=== PATIENT | female | born 1975 | race African-American/Black ===

== ENCOUNTER → 2017-08-28 14:35 | Outpatient (CLI) | payer OTHER ==
[~2017-08-28 14:35] MED LIST: ALDACTONE50 MG PO; BACTRIM 400-801 TAB PO; DOXYCYCLINE HY100 M2 PO; HYDROCODONE-APA1 TAB PO; LASIX40 MG PO; NORVASC10 MG PO; VITAMIN D250000 UNIT PO
[2017-09-12 18:09] VITALS: BMI 35.6
== END | disposition home or self-care (01) ==
LOC: D.MRI 14:35
DX: M79.604 Pain in right leg (principal)

== ENCOUNTER 2017-09-12 06:00 | Day surgery (SDC) | payer OTHER ==
[2017-09-11 17:07] LABS: BASOPHILS 0.9 % (0-2); EOSINOPHILS 1.6 % (0-7); HEMATOCRIT 39.4 % (36.0-48.0); IMMATURE GRANULOCYTES 0.3 % (0-5); LYMPHOCYTES 19.9 % (15-50); MCH 26.5 pg (26.0-34.0); MCV 80.4 fL (80.0-100.0); MEAN PLATELET VOLUME 8.9 fL (7.4-10.4); NEUTROPHILS 71.3 % (40-80); PLATELET COUNT 280 10x3/uL (130-400); RDW 14.8 % (11.5-14.5)
[2017-09-11 17:42] LABS: ALBUMIN 3.8 g/dL (3.4-5.0); ANION GAP 9.2 mmol/L (8-16); BILIRUBIN - TOTAL 0.93 mg/dL (0.2-1.3); C-REACTIVE PROTEIN 1.3 mg/dL (0.0-0.9); CALCIUM 8.9 mg/dL (8.5-10.1); CARBON DIOXIDE 30.9 mmol/L (21.0-32.0); CREATININE - SERUM 0.9 mg/dL (0.6-1.3); POTASSIUM - SERUM 3.1 mmol/L (3.5-5.1); PROTEIN - SERUM 7.4 g/dL (6.4-8.2)
[2017-09-11 18:52] LABS: ERYTHROCYTE SEDIMENTATION RATE 4 mm/hr (0-20)
[~2017-09-12] VITALS: Ht 162.6 cm; Wt 93.9 kg
[~2017-09-12 06:00] MED LIST changes: -ALDACTONE50 MG PO; -DOXYCYCLINE HY100 M2 PO; -HYDROCODONE-APA1 TAB PO
[2017-09-12] MEDS ORDERED: ALDACTONE50 MG PO (06:17)
[2017-09-12 06:18] VITALS: BP 135/85; BMI 35.6
[2017-09-12 09:28] VITALS: BP 167/87
[2017-09-12 18:09] VITALS: Ht 162.6 cm; Wt 93.9 kg
[2017-09-12 20:16] VITALS: BP 154/58
[2017-09-13 00:18] VITALS: BP 173/82
[2017-09-13 04:41] VITALS: BP 151/83
[2017-09-13 07:36] LABS: CALC OSMOLALITY 277 mosm/kg (275-300); CALCIUM 8.8 mg/dL (8.5-10.1); CARBON DIOXIDE 27.8 mmol/L (21.0-32.0); CHLORIDE - SERUM 103 mmol/L (98-107); CREATININE - SERUM 0.8 mg/dL (0.6-1.3); GLUCOSE 137 mg/dL (74-106); MAGNESIUM - SERUM 2.1 mg/dL (1.8-2.4); POTASSIUM - SERUM 3.9 mmol/L (3.5-5.1); SODIUM 138 mmol/L (136-145); UREA NITROGEN 13 mg/dL (7-18); eGFR NON AFRICAN AMERICAN 82 mL/min (90-120)
[2017-09-13 08:41] VITALS: BP 144/76
[2017-09-13 12:38] VITALS: BP 142/64
[2017-09-13] MEDS ORDERED: DOXYCYCLINE HY100 M2 PO (12:53)
[2017-09-13] MEDS ORDERED: HYDROCODONE-APA1 TAB PO (12:53)
== END 2017-09-13 14:17 | disposition home or self-care (01) ==
LOC: D.MS 06:00 → D.OPS 06:00 → D.PAN 07:30 → D.OPS 07:30 → D.MS 09:19 → D.OPS 09-13 14:17
PROVIDERS: Anesthesiology; Orthopaedic Surgery
DX: L03.115 Cellulitis of right lower limb (principal); B95.62 Methicillin resistant Staphylococcus aureus infection as the cause of diseases classified elsewhere; T63.301A Toxic effect of unspecified spider venom, accidental (unintentional), initial encounter

== ENCOUNTER → 2017-09-22 10:27 | Outpatient (CLI) | payer OTHER ==
[2017-09-12 18:09] VITALS: BMI 35.6
[~2017-09-22 10:27] MED LIST changes: +ALDACTONE50 MG PO; +DOXYCYCLINE HY100 M2 PO; +HYDROCODONE-APA1 TAB PO
== END | disposition home or self-care (01) ==
LOC: D.US 10:27
DX: M79.604 Pain in right leg (principal); R22.41 Localized swelling, mass and lump, right lower limb